=== PATIENT | male | born 1970 | race Caucasian/White ===

== ENCOUNTER 2024-03-27 16:29 | Inpatient (IN) | payer OTHER ==
[2024-03-27 17:12] LABS: #Basophils 0.07 10x3/uL (0.0-0.2); #Eosinophils 0.09 10x3/uL (0.0-0.5); #Monocytes 0.95 10x3/uL (0.0-1.1); %Eosinophils 1.3 % (0.0-6.0); %Lymphocytes 35.6 % (18.0-47.0); %Neutrophils 47.2 % (40.0-75.0); Hematocrit 34.1 % (38.8-50.0); Hemoglobin 12.2 g/dL (13.5-17.5); Mean Corpuscular HGB CONC 35.8 g/dL (32.0-36.0); Mean Corpuscular Volume 100.6 fL (81.2-95.1); Platelet Count 667 10x3/uL (150-450); RBC Distribution Width 11.7 % (11.5-14.5); Red Blood Cell (RBC) Count 3.39 10x6/uL (4.32-5.72); White Blood Cell (WBC) Count 6.8 10x3/uL (3.5-10.5)
[2024-03-27 17:24] LABS: ALT (SGPT) 52 U/L (8-55); AST (SGOT) 109 U/L (5-34); Albumin 2.7 g/dL (3.5-5.0); Alkaline Phosphatase 156 U/L (40-110); Anion Gap 23 mmol/L (10-20); BUN (Urea Nitrogen) 4 mg/dL (8.4-25.7); Bilirubin, Total 0.7 mg/dL (0.2-1.2); Calc. Creatinine Clearance 0 mL/min (70-130); Calcium 9.2 mg/dL (7.8-10.44); Carbon Dioxide 27 mmol/L (22-29); Chloride 89 mmol/L (98-107); Estimated GFR 105; Globulin 4.1 g/dL (2.4-3.5); Glucose 106 mg/dL (70-105); Protein, Total 6.8 g/dL (6.0-8.3); Sodium 137 mmol/L (136-145)
[2024-03-27 17:37] LABS: Troponin I 0.021 ng/mL (< 0.028)
[2024-03-27 17:47] LABS: Critical Call Chemistry NUR.VM6 AT 1746; Potassium 2.2 mmol/L (3.5-5.1)
[2024-03-27 18:03] LABS: Acetaminophen Less than 10 mcg/mL (Less than 10); Alcohol 205.8 mg/dL (Less than 10); Lipase 206 U/L (8-78); Magnesium 1.8 mg/dL (1.6-2.6); Salicylate Less than 8.0 mg/dL (Less than 8.0)
[2024-03-27] MEDS ORDERED: Potassium Chloride 20 MEQ TAB ONE (18:15)
[2024-03-27] MEDS ORDERED: Magnesium 2 GM/50 ML BAG (IN WATER) ONE (18:15)
[2024-03-27] MEDS ORDERED: Potassium Chloride 20 MEQ (100 mL) BAG ONE (18:15)
[2024-03-27 18:47] LABS: PTT 23.4 sec (22.0-33.0); Prothrombin Time 10.8 sec (9.5-12.1)
[2024-03-27 19:21] LABS: Bilirubin Neg (Negative); Blood, Urine 50 (Negative); Clarity Clear (Clear); Glucose, Urine (Dipstick) Normal (Negative); Ketone, Urine 15 mg/dL (Negative); Leukocyte Negative (Negative); Nitrite Negative (Negative); Protein, Urine (Dipstick) 100 mg/dl (Neg-Trace); pH, Urine 6.5 (5.0-9.0)
[2024-03-27] MEDS ORDERED: Senokot S 8.6-50 MG TAB PO PRN (19:23)
[2024-03-27] MEDS ORDERED: Guaifenesin DM 100-10/5 ML UDCUP PO PRN (19:23)
[2024-03-27] MEDS ORDERED: Calcium Carbonate 500 MG ChewTAB PO PRN (19:23)
[2024-03-27] MEDS ORDERED: Ondansetron PF 4 MG/2 ML Vial IVP PRN (19:23)
[2024-03-27 19:31] LABS: Amphetamine Not Detected (NotDetected); Barbiturates Screen Not Detected (NotDetected); Benzodiazepine Screen Not Detected (NotDetected); Cocaine Metabolite Screen Not Detected (NotDetected); Methadone Not Detected (NotDetected); Methamphetamine Not Detected (NotDetected); Opiate Screen Not Detected (NotDetected); Oxycodone Screen Not Detected (NotDetected); Phencyclidine (PCP) Not Detected (NotDetected); THC/Cannabinoid Screen Not Detected (NotDetected); Tricyclic Screen Not Detected (NotDetected)
[2024-03-27 19:36] LABS: Bacteria/HPF Rare-Few HPF (None Seen); CAUTI Indications for Culture Alt mental st,lethar; Squamous Epithelial 0-3 HPF (0-3); WBC/HPF 0-3 HPF (0-3)
[2024-03-27 19:37] LABS: Urine Culture Reflex No No
[2024-03-27 20:32] VITALS: BMI 23.1
[2024-03-27] MEDS: Multivitamins, Adult 10 ML, Thiamine HCl 100 MG, Folic Acid 1 MG in Dextrose 5 %-0.45 %... IV SCH (20:54)
[2024-03-27] MEDS: Magnesium Oxide 400 MG TAB PO SCH (20:54)
[2024-03-27] MEDS: Thiamine HCl 200 MG/2 ML VIAL SLOW IVP SCH (20:54)
[2024-03-27] MEDS: Albumin 25% 25 GM (100 mL) BOT IVPB SCH (20:55)
[2024-03-27] MEDS: Nicotine 14 MG PATCH TD SCH (20:55)
[2024-03-27] MEDS: Potassium Chloride 20 MEQ TAB PO SCH (20:55)
[2024-03-28] MEDS: Acetaminophen 325 MG TAB PO PRN (01:17)
[2024-03-28] MEDS: Dextrose 5 % And 0.9 % NaCl 1,000 ML IV SCH (01:17)
[2024-03-28 04:48] LABS: ALT (SGPT) 33 U/L (8-55); AST (SGOT) 60 U/L (5-34); Albumin 2.4 g/dL (3.5-5.0); Alkaline Phosphatase 99 U/L (40-110); Anion Gap 15 mmol/L (10-20); BUN (Urea Nitrogen) 5 mg/dL (8.4-25.7); Bilirubin, Total 0.7 mg/dL (0.2-1.2); Calc. Creatinine Clearance 105 mL/min (70-130); Calcium 7.7 mg/dL (7.8-10.44); Carbon Dioxide 26 mmol/L (22-29); Chloride 98 mmol/L (98-107); Critical Call Chemistry NUR.CA@0448/JG2/WITHREADBACK; Estimated GFR 107; Globulin 2.5 g/dL (2.4-3.5); Glucose 106 mg/dL (70-105); Lipase 156 U/L (8-78); Magnesium 1.9 mg/dL (1.6-2.6); Phosphorus 1.5 mg/dL (2.3-4.7); Potassium 2.4 mmol/L (3.5-5.1); Protein, Total 4.9 g/dL (6.0-8.3); Sodium 137 mmol/L (136-145)
[2024-03-28] MEDS ORDERED: Magnesium Sulfate/D5W 1 GM/100 ML BAG IVPB SCH (05:30)
[2024-03-28 05:32] LABS: #Basophils 0.07 10x3/uL (0.0-0.2); #Eosinophils 0.07 10x3/uL (0.0-0.5); #Monocytes 0.65 10x3/uL (0.0-1.1); #Neutrophils 3.66 10x3/uL (1.5-8.4); %Basophils 1.3 % (0.0-2.0); %Eosinophils 1.3 % (0.0-6.0); %Lymphocytes 19.5 % (18.0-47.0); %Monocytes 11.6 % (0.0-10.0); %Neutrophils 65.4 % (40.0-75.0); Hematocrit 25.5 % (38.8-50.0); Hemoglobin 8.9 g/dL (13.5-17.5); Mean Corpuscular HGB CONC 34.9 g/dL (32.0-36.0); Mean Corpuscular Hemoglobin 35.5 pg (27.0-33.0); Mean Corpuscular Volume 101.6 fL (81.2-95.1); Mean Platelet Volume 9.4 fL (7.4-10.4); Platelet Count 460 10x3/uL (150-450); RBC Distribution Width 11.8 % (11.5-14.5); Red Blood Cell (RBC) Count 2.51 10x6/uL (4.32-5.72); White Blood Cell (WBC) Count 5.6 10x3/uL (3.5-10.5)
[2024-03-28] MEDS: Magnesium Sulfate/D5W 1 GM in Premix 1 BAG IVPB SCH (05:48)
[2024-03-28] MEDS: Potassium Chloride 20 MEQ TAB PO SCH (05:48)
[2024-03-28] MEDS: Potassium Phosphate 30 MMOL in Sodium Chloride 0.9% 250 ML 250 ML IVPB SCH (07:54)
[2024-03-28] MEDS: Thiamine HCl 200 MG/2 ML VIAL SLOW IVP SCH ×2 (07:54→11:20)
[2024-03-28] MEDS: Folic Acid 1 MG TAB PO SCH (07:55)
[2024-03-28] MEDS: Enoxaparin 40 MG (0.4 mL) SYRINGE SC SCH (07:55)
[2024-03-28] MEDS: Multivitamin W/ Minerals 1 TAB PO SCH (07:55)
[2024-03-28] MEDS: Pantoprazole DR 40 MG TAB PO SCH (07:56)
[2024-03-28] MEDS: Cyanocobalamin (Vitamin B-12) 1,000 MCG TAB PO SCH (07:56)
[2024-03-28] MEDS ORDERED: Ondansetron ODT 4 MG TAB PO PRN (08:43)
[2024-03-28 11:22] LABS: ALT (SGPT) 35 U/L (8-55); AST (SGOT) 59 U/L (5-34); Albumin 2.5 g/dL (3.5-5.0); Alkaline Phosphatase 113 U/L (40-110); Anion Gap 15 mmol/L (10-20); BUN (Urea Nitrogen) 5 mg/dL (8.4-25.7); Bilirubin, Total 0.7 mg/dL (0.2-1.2); Calc. Creatinine Clearance 106 mL/min (70-130); Calcium 7.9 mg/dL (7.8-10.44); Carbon Dioxide 26 mmol/L (22-29); Chloride 101 mmol/L (98-107); Estimated GFR 108; Globulin 2.8 g/dL (2.4-3.5); Glucose 145 mg/dL (70-105); Phosphorus 1.8 mg/dL (2.3-4.7); Potassium 3.8 mmol/L (3.5-5.1); Protein, Total 5.3 g/dL (6.0-8.3); Sodium 138 mmol/L (136-145)
[2024-03-28] MEDS: Multivit, Therapeutic 1 TAB PO SCH (11:26)
[2024-03-29 03:44] LABS: #Basophils 0.04 10x3/uL (0.0-0.2); #Eosinophils 0.11 10x3/uL (0.0-0.5); #Monocytes 0.42 10x3/uL (0.0-1.1); #Neutrophils 2.81 10x3/uL (1.5-8.4); %Basophils 0.9 % (0.0-2.0); %Eosinophils 2.5 % (0.0-6.0); %Monocytes 9.6 % (0.0-10.0); %Neutrophils 64.5 % (40.0-75.0); Hematocrit 26.5 % (38.8-50.0); Hemoglobin 9.1 g/dL (13.5-17.5); Mean Corpuscular HGB CONC 34.3 g/dL (32.0-36.0); Mean Corpuscular Volume 104.7 fL (81.2-95.1); Mean Platelet Volume 9.1 fL (7.4-10.4); Platelet Count 379 10x3/uL (150-450); RBC Distribution Width 11.6 % (11.5-14.5); Red Blood Cell (RBC) Count 2.53 10x6/uL (4.32-5.72); White Blood Cell (WBC) Count 4.4 10x3/uL (3.5-10.5)
[2024-03-29 04:01] LABS: ALT (SGPT) 31 U/L (8-55); AST (SGOT) 54 U/L (5-34); Albumin 2.2 g/dL (3.5-5.0); Alkaline Phosphatase 96 U/L (40-110); Anion Gap 12 mmol/L (10-20); BUN (Urea Nitrogen) 4 mg/dL (8.4-25.7); Bilirubin, Total 0.6 mg/dL (0.2-1.2); Calc. Creatinine Clearance 126 mL/min (70-130); Calcium 7.3 mg/dL (7.8-10.44); Carbon Dioxide 25 mmol/L (22-29); Chloride 106 mmol/L (98-107); Estimated GFR 113; Globulin 2.4 g/dL (2.4-3.5); Glucose 111 mg/dL (70-105); Potassium 2.9 mmol/L (3.5-5.1); Protein, Total 4.6 g/dL (6.0-8.3); Sodium 140 mmol/L (136-145)
[2024-03-29] MEDS: Potassium Chloride 20 MEQ TAB PO SCH ×2 (09:23→17:03)
[2024-03-29] MEDS: Lorazepam 1 MG TAB PO PRN (18:01)
[2024-03-30 04:18] LABS: #Basophils 0.05 10x3/uL (0.0-0.2); #Eosinophils 0.13 10x3/uL (0.0-0.5); #Monocytes 0.43 10x3/uL (0.0-1.1); #Neutrophils 2.57 10x3/uL (1.5-8.4); %Basophils 1.2 % (0.0-2.0); %Lymphocytes 24.5 % (18.0-47.0); %Neutrophils 60.1 % (40.0-75.0); Hematocrit 27.9 % (38.8-50.0); Hemoglobin 9.4 g/dL (13.5-17.5); Mean Corpuscular HGB CONC 33.7 g/dL (32.0-36.0); Mean Corpuscular Hemoglobin 35.9 pg (27.0-33.0); Mean Corpuscular Volume 106.5 fL (81.2-95.1); Mean Platelet Volume 9.4 fL (7.4-10.4); Platelet Count 399 10x3/uL (150-450); RBC Distribution Width 11.9 % (11.5-14.5); Red Blood Cell (RBC) Count 2.62 10x6/uL (4.32-5.72); White Blood Cell (WBC) Count 4.3 10x3/uL (3.5-10.5)
[2024-03-30 04:49] LABS: ALT (SGPT) 30 U/L (8-55); AST (SGOT) 45 U/L (5-34); Albumin 2.2 g/dL (3.5-5.0); Alkaline Phosphatase 95 U/L (40-110); Anion Gap 10 mmol/L (10-20); BUN (Urea Nitrogen) 5 mg/dL (8.4-25.7); Bilirubin, Total 0.5 mg/dL (0.2-1.2); Calc. Creatinine Clearance 120 mL/min (70-130); Calcium 8.5 mg/dL (7.8-10.44); Carbon Dioxide 27 mmol/L (22-29); Chloride 107 mmol/L (98-107); Estimated GFR 112; Globulin 2.5 g/dL (2.4-3.5); Glucose 103 mg/dL (70-105); Potassium 3.7 mmol/L (3.5-5.1); Protein, Total 4.7 g/dL (6.0-8.3); Sodium 140 mmol/L (136-145)
[2024-03-30 08:13] VITALS: BP 142/96; TEMP 97.9
== END 2024-03-30 15:56 | disposition home or self-care (01) | DRG 56 ==
LOC: CSHERS 16:29 → CSHTELE 19:19 → OBSVTOIN 03-28 14:26
PROVIDERS: ADMIT Student in an Organized Health Care Education/Training Program; ATTEND Internal Medicine
PROC: 30233J1 Transfusion of Nonautologous Serum Albumin into Peripheral Vein, Percutaneous Approach (ICD-10-PCS; principal; 2024-03-27)
DX: G31.2 Degeneration of nervous system due to alcohol (principal); E43 Unspecified severe protein-calorie malnutrition; F10.239 Alcohol dependence with withdrawal, unspecified; E87.20 Acidosis, unspecified; R27.0 Ataxia, unspecified; E87.6 Hypokalemia; E83.42 Hypomagnesemia; E83.39 Other disorders of phosphorus metabolism; D53.9 Nutritional anemia, unspecified; I10 Essential (primary) hypertension; Z79.899 Other long term (current) drug therapy
CPT/HCPCS: 36415; 70450; 70551; 71045; 80053; 80306; 80307; 81001; 82140; 82550; 83605; 83690; 83735; 84100; 84443; 84484; 85025; 85610; 85730; 93005; 96365; 96366; 96368; 96372; 96375; 96376; G0378; J1650; J3411; J3475; J3480; J7042; J7050; P9047